=== PATIENT | female | born 1965 | race African-American/Black ===

== ENCOUNTER 2016-12-20 08:00 | Emergency (ER) | payer OTHER ==
[2016-12-20 08:15] VITALS: BP 136/79; PULSE 77; TEMP 98.4; BMI 52.1
--- NOTE | 2016-12-20 08:33 | PDOC ---
History of Present Illness - General Chief Complaint: Back Pain Stated Complaint: SIDE PAIN Time Seen by Provider: 12/20/16 08:23 History Source: Patient Exam Limitations: No Limitations - History of Present Illness Initial Comments: CHIEF COMPLAINT: 51 y/o afebrile female no significant PMH c/o left upper abdominal pain for 1 week. HISTORY OF PRESENT ILLNESS: The patient states the pain hurts constantly but worse with palpation. She denies f/c, n/v/d, CP, SOB, back pain, hematuria, dysuria. She also states she swallowed a piece of plastic 1 year ago, she thinks it's still there and would like us to remove it. She is taking opioids for pain which are helping. Vital signs on arrival are within normal limits. REVIEW OF SYSTEMS: GENERAL/CONSTITUTIONAL: No fever/chills. No weakness. No weight change. HEAD, EYES, EARS, NOSE AND THROAT: No change in vision. No ear pain or discharge. No sore throat. CARDIOVASCULAR: No chest pain or shortness of breath. RESPIRATORY: No cough, wheezing, or hemoptysis. GASTROINTESTINAL: +left upper abd pain. No nausea, vomiting, diarrhea, constipation. GENITOURINARY: No dysuria, frequency, or change in urination. MUSCULOSKELETAL: No joint or muscle swelling or pain. No neck or back pain. SKIN: No rash or easy bruising. NEUROLOGIC: No headache, vertigo, loss of consciousness, or loss of sensation. PHYSICAL EXAM: GENERAL: The patient is awake, alert, and fully oriented, in no acute distress. She is morbidly obese, ambulatory, in NAD or obvious discomfort. HEAD: Normal with no signs of trauma. ENT: Pupils equal, round and reactive to light, extraocular movements intact, sclera anicteric, conjunctiva clear. Neck supple. LUNGS: Clear to auscultation bilaterally. Normal excursion. No respiratory distress or use of accessory muscles. CV: RRR, S1/S2, no MRG. Cap refill < 2 sec. ABDOMEN: Soft, morbidly obese, TTP between LUQ and left flank. Some mild TTP of left pelvic region. No suprapubic TTP. No rebound, guarding, rigidity. No flank pain. BACK: No CVA TTP b/l. EXTREMITIES: Normal range of motion, no edema. NEUROLOGICAL: Normal speech, normal gait. CN II-XII grossly intact. PSYCH: Normal mood, normal affect. SKIN: Warm, dry, normal turgor, no rashes or lesions noted. Past History - Past Medical History Allergies/Adverse Reactions: Allergies Allergy/AdvReac Type Severity Reaction Status Date / Time No Known Allergies Allergy Verified 12/20/16 08:08 Home Medications: Ambulatory Orders Oxycodone HCl/Acetaminophen [Percocet 5-325 mg Tablet] 1 - 2 tab PO Q4H Asthma: Yes - Surgical History Abdominal Surgery: Yes (fibroids) - Psycho/Social/Smoking Cessation Hx Anxiety: No Suicidal Ideation: No Smoking History: Current every day smoker Have you smoked in the past 12 months: Yes Number of Cigarettes Smoked Daily: 10 Information on smoking cessation initiated: No 'Breaking Loose' booklet given: 07/11/15 Hx Alcohol Use: No Drug/Substance Use Hx: No *Physical Exam - Vital Signs Last Vital Signs Temp Pulse Resp BP Pulse Ox 98.4 F 77 22 136/79 100 12/20/16 08:08 12/20/16 08:08 12/20/16 08:08 12/20/16 08:08 12/20/16 08:08 Medical Decision Making - Medical Decision Making A/P: 51 y/o afebrile female with left upper quadrant pain for 1 week. No other symptoms. Will check for UTI; pt requests test. Informed her she would need to f/u with ENT for possible scope for plastic issue Suggested she take Motrin every 6 hours for side pain UA normal hcg negative Will discharge to home with instructions to add Motrin to her opioid regimen and f/u with Dr. Dover to address her throat issue. Instructed the patient to return to the ER with any worsening or concerning symptoms. The patient verbalizes understanding of all instructions, has no further questions and is awaiting discharge. *DC/Admit/Observation/Transfer Diagnosis at time of Disposition: Musculoskeletal pain - Discharge Dispostion Disposition: HOME Condition at time of disposition: Good - Referrals Referrals: Brandon Dover MD [Staff Physician] - - Patient Instructions Printed Discharge Instructions: DI for Musculoskeletal Pain Additional Instructions: Discharge Instructions: -Continue taking your prescription pain medication as directed by your pain management doctor -Take 600mg of [id number] Ibuprofen with food for pain every 6 hours -Follow up with Dr. Dover to follow up on your throat issue. -Return to the ER with any worsening or concerning symptoms
[2016-12-20 09:13] LABS: URINE APPEARANCE CLEAR; URINE BILIRUBIN NEGATIVE (NEGATIVE); URINE BLOOD NEGATIVE (NEGATIVE); URINE COLOR YELLOW; URINE GLUCOSE (UA) NEGATIVE (NEGATIVE); URINE KETONE NEGATIVE (NEGATIVE); URINE NITRITE NEGATIVE (NEGATIVE); URINE PROTEIN NEGATIVE (NEGATIVE); URINE UROBILINOGEN 2.0 E.U/dl E.U./dl (0.2-1.0)
[2016-12-20 09:21] LABS: URINE LEUK ESTERASE TRACE (NEGATIVE)
[2016-12-20 09:26] LABS: URINE MUCUS RARE; URINE RBC 1 /hpf (0-3); URINE WBC 4 /hpf (3-5)
[2016-12-20] MEDS ORDERED: IBUPROFEN 600 MG TABLET (FP) PO ONE ×2 (09:35→09:38)
== END 2016-12-20 09:40 | disposition home or self-care (01) ==
LOC: JERFT 08:00
DX: M79.1 Myalgia (principal); F17.210 Nicotine dependence, cigarettes, uncomplicated; J45.909 Unspecified asthma, uncomplicated
CPT/HCPCS: 81003; 81015; 84703; 87086; 99281-25

== ENCOUNTER 2017-01-10 12:07 | Emergency (ER) | payer OTHER ==
[2017-01-10 12:26] VITALS: BP 128/75; PULSE 71; TEMP 98.1; BMI 52.1
--- NOTE | 2017-01-10 12:48 | PDOC ---
History of Present Illness - General Chief Complaint: Pain Stated Complaint: RT ANKLE PAIN Time Seen by Provider: 01/10/17 12:32 History Source: Patient Exam Limitations: Physical Impairment (pt in wheelchair obese ) - History of Present Illness Initial Comments: 01/10/17 12:47 pt states she fell 3 weeks ago and injured her right ankle. c/o pain to the ankle. Past History - Past Medical History Allergies/Adverse Reactions: Allergies Allergy/AdvReac Type Severity Reaction Status Date / Time No Known Allergies Allergy Verified 01/10/17 12:26 Home Medications: Ambulatory Orders Oxycodone HCl/Acetaminophen [Percocet 5-325 mg Tablet] 1 - 2 tab PO Q4H Acetaminophen W/ Codeine #3 [Tylenol # 3 -] 1 tab PO Q6H PRN #10 tablet MDD 4 tabs 01/10/17 Asthma: Yes Other medical history: CHRONIC BACK PAIN - Surgical History Abdominal Surgery: Yes (fibroids) - Psycho/Social/Smoking Cessation Hx Anxiety: No Suicidal Ideation: No Smoking History: Current every day smoker Have you smoked in the past 12 months: Yes Number of Cigarettes Smoked Daily: 10 Information on smoking cessation initiated: No 'Breaking Loose' booklet given: 07/11/15 Hx Alcohol Use: No Drug/Substance Use Hx: No *Physical Exam - Vital Signs Last Vital Signs Temp Pulse Resp BP Pulse Ox 98.1 F 71 18 128/75 97 01/10/17 12:22 01/10/17 12:22 01/10/17 12:22 01/10/17 12:22 01/10/17 12:22 - Physical Exam General Appearance: Yes: Nourished, Appropriately Dressed, Obese HEENT: positive: EOMI, VENKATA Musculoskeletal: positive: Normal Inspection Extremity: positive: Normal Capillary Refill, Tender (distal medial, lateral maleolus ), Swelling, Other (from all toes, strong DP pulse). negative: Coldness Integumentary: positive: Normal Color, Dry, Warm Neurologic: positive: Fully Oriented, Alert, Normal Mood/Affect, Normal Response , Motor Strength 5/5 Procedures - Splinting Splint Location: Right: Ankle (posterior leg splint ) Hand-Made Type: orthoglass Post-Proc Neuro Vasc Exam: normal ED Treatment Course - RADIOLOGY Radiology Studies Ordered: Category Date Time Status ANKLE & FOOT-RIGHT* [RAD] Stat Radiology 01/10/17 12:32 Taken Comments: fracture distal tibia Medical Decision Making - Medical Decision Making 01/10/17 12:58 cc: fell 3 weeks ago c/o constant right ankle pain pt is obese uses electric wheelchair pt denies any numbness to the ankle or foot 01/10/17 13:02 orthoglass splint placed nv intact pt to folow up next week with the orthopedist, pt states she has an orthopedist in the [place] that she will see I have also given her Adina Gruber and Reji *DC/Admit/Observation/Transfer Diagnosis at time of Disposition: Ankle fracture, right Qualifiers: Encounter type: initial encounter Fracture type: closed Qualified Code(s): S82.891A - Other fracture of right lower leg, initial encounter for closed fracture - Discharge Dispostion Disposition: HOME Condition at time of disposition: Good - Prescriptions Prescriptions: Acetaminophen W/ Codeine #3 [Tylenol # 3 -] 1 tab PO Q6H PRN #10 tablet MDD 4 tabs PRN Reason: Severe Pain - Referrals Referrals: Asmita Maldonado [Primary Care Provider] - Wil Gruber MD [Staff Physician] - - Patient Instructions Additional Instructions: follow with or for follow up call them today to set up appointment for next week keep the splint on at all times do not remove or get wet
[2017-01-10] MEDS ORDERED: ACETAMINOPHEN 500 MG TABLET (FP) PO ONE (12:59)
[2017-01-10] MEDS ORDERED: ACETAMINOPHEN 500 MG TABLET (FP) ONE (13:07)
== END 2017-01-10 13:09 | disposition home or self-care (01) ==
LOC: JERFT 12:07
PROC: 2W3LX1Z Immobilization of Right Lower Extremity using Splint (ICD-10-PCS; principal; 2017-01-10)
DX: S82.831A Other fracture of upper and lower end of right fibula, initial encounter for closed fracture (principal); E66.01 Morbid (severe) obesity due to excess calories; Z99.3 Dependence on wheelchair; Z68.43 Body mass index [BMI] 50.0-59.9, adult; W19.XXXA Unspecified fall, initial encounter; Y93.89 Activity, other specified; Y92.89 Other specified places as the place of occurrence of the external cause
CPT/HCPCS: 29125; 73610-TC-RT; 73630-TC-RT; 99282-25

== ENCOUNTER 2017-05-12 11:26 | Emergency (ER) | payer OTHER ==
[2017-05-12 11:32] VITALS: BP 130/73; PULSE 76; TEMP 98; BMI 50.6
[2017-05-12] MEDS ORDERED: IBUPROFEN 600 MG TABLET (FP) PO ONE (11:51)
[2017-05-12] MEDS ORDERED: IBUPROFEN 400 MG TABLET (FP) PO ONE (11:53)
--- NOTE | 2017-05-12 12:02 | PDOC ---
History of Present Illness - General Chief Complaint: Injury Stated Complaint: ANKLES PAIN Time Seen by Provider: 05/12/17 11:42 History Source: Patient Exam Limitations: No Limitations - History of Present Illness Initial Comments: 05/12/17 11:53 51 yr female with c/o pain to the left ankle/foot after a fall 2 days ago. Pt states she has a history or pain to the right ankle from a fracture 3 months ago. Pt requesting tylenol with codeine. Severity: reports: mild Past History - Past Medical History Allergies/Adverse Reactions: Allergies Allergy/AdvReac Type Severity Reaction Status Date / Time No Known Allergies Allergy Verified 05/12/17 11:29 Home Medications: Ambulatory Orders Oxycodone HCl/Acetaminophen [Percocet 5-325 mg Tablet] 1 - 2 tab PO Q4H Naproxen [Naprosyn -] 500 mg PO BID PRN #14 tablet 05/12/17 Asthma: Yes Other medical history: BACKS - Surgical History Abdominal Surgery: Yes (fibroids) - Psycho/Social/Smoking Cessation Hx Anxiety: No Suicidal Ideation: No Smoking History: Current every day smoker Have you smoked in the past 12 months: Yes Number of Cigarettes Smoked Daily: 10 Information on smoking cessation initiated: Yes 'Breaking Loose' booklet given: 05/12/17 Hx Alcohol Use: No Drug/Substance Use Hx: No *Physical Exam - Vital Signs Last Vital Signs Temp Pulse Resp BP Pulse Ox 98.0 F 76 18 130/73 100 05/12/17 11:30 05/12/17 11:30 05/12/17 11:30 05/12/17 11:30 05/12/17 11:30 - Physical Exam General Appearance: Yes: Nourished, Appropriately Dressed HEENT: positive: EOMI, VENKATA Neck: positive: Supple Musculoskeletal: positive: Normal Inspection. negative: CVA Tenderness, CVA Tenderness (R), CVA Tenderness (L), Muscle Spasm Extremity: positive: Normal Capillary Refill, Normal Inspection, Tender (left ankle ttp distal tibia no swelling or deformtiy nv intact strong DP pulses bilaterally) Integumentary: positive: Normal Color, Dry, Warm Neurologic: positive: Fully Oriented, Alert, Normal Mood/Affect, Normal Response , Motor Strength 5/5 ED Treatment Course - RADIOLOGY Radiology Studies Ordered: Category Date Time Status ANKLE & FOOT-LEFT* [RAD] Stat Radiology 05/12/17 11:52 Ordered ANKLE & FOOT-RIGHT* [RAD] Stat Radiology 05/12/17 11:52 Ordered Medical Decision Making - Medical Decision Making 05/12/17 12:21 cc: chronic pain right ankle left ankle pain s/p fall 3 days ago pt ambulatory no unsteady gait, pt uses a walker at baseline will xray the ankle motrin for pain *DC/Admit/Observation/Transfer Diagnosis at time of Disposition: Left ankle pain Qualifiers: Chronicity: acute Qualified Code(s): M25.572 - Pain in left ankle and joints of left foot - Discharge Dispostion Disposition: HOME Condition at time of disposition: Good - Prescriptions Prescriptions: Naproxen [Naprosyn -] 500 mg PO BID PRN #14 tablet PRN Reason: Pain - Referrals Referrals: Knvg Mendoza MD [Staff Physician] - - Patient Instructions Additional Instructions: please follow with the orthopedist you have seen in the past take naprosyn for pain as needed elevate the foot/ankle and apply ice every 2hrs for 20 minutes to help with pain
== END 2017-05-12 13:48 | disposition home or self-care (01) ==
LOC: JERFT 11:26
DX: M25.572 Pain in left ankle and joints of left foot (principal); Z87.81 Personal history of (healed) traumatic fracture; M25.571 Pain in right ankle and joints of right foot; W19.XXXA Unspecified fall, initial encounter; Y93.89 Activity, other specified; Y92.89 Other specified places as the place of occurrence of the external cause; R26.89 Other abnormalities of gait and mobility; Z99.89 Dependence on other enabling machines and devices
CPT/HCPCS: 73610-TC-LT; 73610-TC-RT; 73630-TC-LT; 73630-TC-RT; 99281-25

== ENCOUNTER 2018-07-30 16:13 | Emergency (ER) | payer OTHER ==
[2018-07-30 16:34] VITALS: BP 121/79; PULSE 81; TEMP 98.8; BMI 51.2
--- NOTE | 2018-07-30 16:35 | PDOC ---
Rapid Medical Evaluation Chief Complaint: Injury Time Seen by Provider: 07/30/18 16:30 Medical Evaluation: Allergies Allergy/AdvReac Type Severity Reaction Status Date / Time No Known Allergies Allergy Verified 05/12/17 11:29 07/30/18 16:31 I have performed a brief in-person evaluation of this patient. The patient presents with a chief complaint of: neck, back, head, right pain- motorized scooter fell onto patient after falling backwards Pertinent physical exam findings: ankle xray right, with multiple ST pain. No deformities I have ordered the following: right ankle Xray- The patient will proceed to the ED for further evaluation. 07/30/18 16:32 07/30/18 16:33 Discharge Disposition - Diagnosis Musculoskeletal pain - Discharge Dispostion Condition at time of disposition: Stable Decision to Admit order: No - Referrals - Patient Instructions - Post Discharge Activity
--- NOTE | 2018-07-30 17:18 | PDOC ---
History of Present Illness - General Chief Complaint: Injury Stated Complaint: INJURY Time Seen by Provider: 07/30/18 16:30 History Source: Patient Exam Limitations: Clinical Condition - History of Present Illness Initial Comments: 07/30/18 17:12 Patient with history of bilateral knee replacement scooter presented with complaint of pain to left side of neck, headache and right ankle status post fall while moving off the ramp from the [place] in a scooter and scooter falling on top of her as per patient. Patient reported incident happened yesterday while she was being sent for appointment and fell of the ramp going down to around from the van. patient denies dizziness, LOC, blurry vision, light headedness Timing/Duration: 24 hours Past History - Past Medical History Allergies/Adverse Reactions: Allergies Allergy/AdvReac Type Severity Reaction Status Date / Time No Known Allergies Allergy Verified 07/30/18 16:34 Home Medications: Ambulatory Orders Methocarbamol [Robaxin -] 500 mg PO TID PRN #21 tablet 07/30/18 Naproxen 500 mg PO BID PRN #20 tablet 07/30/18 Asthma: Yes COPD: No Other medical history: Rt ankle surgery - Surgical History Abdominal Surgery: Yes (fibroids) - Suicide/Smoking/Psychosocial Hx Smoking History: Current every day smoker Have you smoked in the past 12 months: Yes Number of Cigarettes Smoked Daily: 10 Information on smoking cessation initiated: No 'Breaking Loose' booklet given: 07/30/18 Hx Alcohol Use: No Drug/Substance Use Hx: No Substance Use Type: None Review of Systems - Review of Systems Able to Perform ROS?: Yes Is the patient limited Ethiopian proficient: No Constitutional: No: Malaise HEENTM: No: Blurred Vision, Recent change in vision, Double Vision Respiratory: No: Symptoms reported Cardiac (ROS): No: Symptoms Reported ABD/GI: No: Nausea, Vomiting Musculoskeletal: Yes: Joint Pain (left side of neck. right ankle), Joint Swelling (right ankle), Muscle Pain (left side of neck). No: Muscle Weakness Neurological: Yes: Headache. No: Numbness, Paresthesia, Seizure, Tingling, Weakness, Dizziness All Other Systems: Reviewed and Negative *Physical Exam - Vital Signs Last Vital Signs Temp Pulse Resp BP Pulse Ox 98.8 F 81 18 121/79 99 07/30/18 16:30 07/30/18 16:30 07/30/18 16:30 07/30/18 16:30 07/30/18 16:30 - Physical Exam Comments: 07/30/18 17:19 GENERAL: Well developed, well nourished. Awake and alert. No acute distress. HEENT: Normocephalic, atraumatic. PERRLA, EOMI. No conjunctival pallor. Sclera are non- icteric. Moist mucous membranes. Oropharynx is clear. NECK: moderate tenderness to left paracervical muscle of C4-C7. Full ROM. No JVD. Carotid pulses 2+ and symmetric, without bruits. No thyromegaly. No lymphadenopathy. CARDIOVASCULAR: Regular rate and rhythm. No murmurs, rubs, or gallops. Distal pulses are 2+ and symmetric. PULMONARY: No evidence of respiratory distress. Lungs clear to auscultation bilaterally. No wheezing, rales or rhonchi. ABDOMINAL: Soft. Non-tender. Non-distended. No rebound or guarding. No organomegaly. Normoactive bowel sounds. MUSCULOSKELETAL : moderate tenderness to lateral malleolus of right ankle. mild swelling to lateral side of right ankle. Normal range of motion at all joints. No bony deformities SKIN: Warm and dry. Normal capillary refill. No rashes. No jaundice. NEUROLOGICAL: Alert, awake, appropriate. Cranial nerves 2-12 intact. PSYCHIATRIC: Cooperative. Good eye contact. Appropriate mood and affect. General Appearance: Yes: Nourished, Appropriately Dressed. No: Apparent Distress ED Treatment Course - RADIOLOGY Radiology Studies Ordered: Category Date Time Status SPINE-CERVICAL [RAD] Stat Radiology 07/30/18 17:06 Ordered Medical Decision Making - Medical Decision Making 07/30/18 17:22 Patient with history of osteoarthritis status post bilateral knee surgery presented with complaint of right ankle, headache and left-sided neck pain status post fall off his scooter yesterday going down a ramp. Patient denies LOC or dizziness. exam significant for moderate tenderness to left side of neck and lateral side of right ankle. X-ray of right ankle ordered. X-ray of the cervical spine ordered. tx based on imaging results 07/30/18 17:45 x-rays of right ankle and cervical spine shows no acute pathology. symptoms likely neck and ankle sprain. patient stable for discharge on NSAIDS and muscle relaxer with orthopedics follow-up *DC/Admit/Observation/Transfer Diagnosis at time of Disposition: Musculoskeletal pain Ankle pain, right Qualifiers: Chronicity: acute Qualified Code(s): M25.571 - Pain in right ankle and joints of right foot Neck muscle strain Qualifiers: Encounter type: initial encounter Qualified Code(s): S16.1XXA - Strain of muscle, fascia and tendon at neck level, initial encounter - Discharge Dispostion Disposition: HOME Condition at time of disposition: Stable Decision to Admit order: No - Prescriptions Prescriptions: Methocarbamol [Robaxin -] 500 mg PO TID PRN #21 tablet PRN Reason: neck pain Naproxen 500 mg PO BID PRN #20 tablet PRN Reason: pain - Referrals Referrals: Asmita Maldonado [Primary Care Provider] - Wil Gruber MD [Staff Physician] - - Patient Instructions Printed Discharge Instructions: DI for Neck Pain, DI for Whiplash Additional Instructions: Your x-rays shows no acute fracture. take prescribed medications for pain. follow-up with referred orthopedics if symptoms persists for more than 4 days - Post Discharge Activity
[2018-07-30] MEDS ORDERED: NAPROXEN 500 MG TABLET (FP) PO ONE (18:23)
[2018-07-30] MEDS ORDERED: NAPROXEN 500 MG TABLET (FP) ONE (18:24)
== END 2018-07-30 18:25 | disposition home or self-care (01) ==
LOC: JERFT 16:13
DX: S16.1XXA Strain of muscle, fascia and tendon at neck level, initial encounter (principal); M25.571 Pain in right ankle and joints of right foot; R51 Headache; V00.831A Fall from motorized mobility scooter, initial encounter; Y93.89 Activity, other specified; Y92.89 Other specified places as the place of occurrence of the external cause; Y99.8 Other external cause status; F17.210 Nicotine dependence, cigarettes, uncomplicated; Z96.653 Presence of artificial knee joint, bilateral
CPT/HCPCS: 72050-TC-FY; 73610-TC-RT-FY; 99281-25

== ENCOUNTER 2018-11-23 17:05 | Emergency (ER) | payer OTHER ==
--- NOTE | 2018-11-23 17:12 | PDOC ---
Rapid Medical Evaluation Time Seen by Provider: 11/23/18 17:09 Medical Evaluation: Allergies Allergy/AdvReac Type Severity Reaction Status Date / Time No Known Allergies Allergy Verified 07/30/18 16:34 11/23/18 17:09 I have performed a brief in-person evaluation of this patient. The patient presents with a chief complaint of: buttock boil and right shoulder pain s/p fall Pertinent physical exam findings: right anterior shoulder tenderness. No bony deformity. Deferred buttock assessment I have ordered the following: xray The patient will proceed to the ED for further evaluation. Discharge Disposition - Diagnosis Shoulder pain, right - Referrals - Patient Instructions - Post Discharge Activity
[2018-11-23 17:15] VITALS: BP 108/65; PULSE 82; TEMP 98.2; BMI 51.2
--- NOTE | 2018-11-23 17:51 | PDOC ---
History of Present Illness - General Chief Complaint: Pain, Acute Stated Complaint: RIGHT ARM PAIN/CYST Time Seen by Provider: 11/23/18 17:09 - History of Present Illness Initial Comments: 11/23/18 17:48 53-year-old female with a past medical history significant for chronic pain presents for evaluation of a painful area on her right buttocks which is been there for about a week no systemic symptoms no fevers chills or night sweats. And a fall which occurred about 2 days ago landing on her right shoulder splint presents for right shoulder pain. Past History - Past Medical History Allergies/Adverse Reactions: Allergies Allergy/AdvReac Type Severity Reaction Status Date / Time No Known Allergies Allergy Verified 11/23/18 17:10 Home Medications: Ambulatory Orders Cephalexin [Keflex] 500 mg PO QID #40 capsule 11/23/18 Sulfamethoxazole/Trimethoprim [Bactrim Ds -] 1 tab PO BID #14 tablet 11/23/18 Asthma: Yes COPD: No - Surgical History Abdominal Surgery: Yes (fibroids) - Immunization History Immunization Up to Date: Yes - Suicide/Smoking/Psychosocial Hx Smoking History: Current every day smoker Have you smoked in the past 12 months: Yes Number of Cigarettes Smoked Daily: 10 Information on smoking cessation initiated: No 'Breaking Loose' booklet given: 07/30/18 Hx Alcohol Use: No Drug/Substance Use Hx: No Substance Use Type: None Review of Systems - Review of Systems Constitutional: No: Fever Musculoskeletal: Yes: Joint Pain Integumentary: Yes: Lesions *Physical Exam - Vital Signs Last Vital Signs Temp Pulse Resp BP Pulse Ox 98.2 F 82 18 108/65 100 11/23/18 17:10 11/23/18 17:10 11/23/18 17:10 11/23/18 17:10 11/23/18 17:10 - Physical Exam Comments: 11/23/18 17:48 Right shoulder skin color and temperature are normal range of motion is full and painful at terminal abduction and external rotation. She is unable to tolerate impingement maneuvers or stability testing. She is neurovascularly intact. There is a nonfluctuant hard indurated mildly erythematous and warm area on the medial aspect of the right buttocks there is no opening there is no fluctuance the area is firm and about 2 cm circumferentially. Moderate Sedation - Procedure Monitoring Vital Signs: Procedure Monitoring Vital Signs Temperature 98.2 F 11/23/18 17:10 Pulse Rate 82 11/23/18 17:10 Respiratory Rate 18 11/23/18 17:10 Blood Pressure 108/65 11/23/18 17:10 O2 Sat by Pulse Oximetry (%) 100 11/23/18 17:10 Medical Decision Making - Medical Decision Making 11/23/18 17:49 I'll send to orthopedic surgery for further evaluation and treatment of her shoulder pain. She most likely has a rotator cuff tear. X-rays were reviewed today and are negative for acute fracture she does have a moderate amount of arthritis in the right shoulder. Recommended warm compresses for the skin abscess on her right buttocks I will have her follow up with general surgery. I also placed on a course of Bactrim and Keflex. *DC/Admit/Observation/Transfer Diagnosis at time of Disposition: Shoulder pain, right, Skin abscess - Discharge Dispostion Disposition: HOME Condition at time of disposition: Stable Decision to Admit order: No - Prescriptions Prescriptions: Cephalexin [Keflex] 500 mg PO QID #40 capsule Sulfamethoxazole/Trimethoprim [Bactrim Ds -] 1 tab PO BID #14 tablet - Referrals Referrals: Asmita Maldonado [Primary Care Provider] - Spenser Lind MD [Staff Physician] - Gaetano Morrison DO [Staff Physician] - - Patient Instructions Printed Discharge Instructions: DI for Shoulder Pain, Contusion, Boil, DI for Skin Abscess Additional Instructions: Continue Percocet as directed which will help with your pain. Follow-up with orthopedic surgery for further evaluation and treatment options of your right shoulder pain. Follow-up with general surgery for further evaluation and treatment options of your cellulitis of your buttocks. Please take the antibiotics as directed. - Post Discharge Activity
== END 2018-11-23 18:29 | disposition home or self-care (01) ==
LOC: JERFT 17:05
DX: M25.511 Pain in right shoulder (principal); L02.31 Cutaneous abscess of buttock; W19.XXXA Unspecified fall, initial encounter; Y93.89 Activity, other specified; Y92.89 Other specified places as the place of occurrence of the external cause; Y99.8 Other external cause status
CPT/HCPCS: 73030-TC-RT-FY; 99281-25

== ENCOUNTER 2019-03-04 13:13 | Emergency (ER) | payer OTHER | END 2019-03-04 14:02 | disposition home or self-care (01) | LOC: JERFT 13:13 ==

== ENCOUNTER 2019-10-08 07:43 | Emergency (ER) | payer MEDICARE, OTHER ==
[2019-10-08 07:54] VITALS: BMI 53.0
[2019-10-08] MEDS ORDERED: SODIUM CHLORIDE 1,000 ML IV STA (08:59)
[2019-10-08] MEDS ORDERED: ACETAMINOPHEN 1000 MG/100 ML VIAL (NON FORMULARY) IVPB ONE (08:59)
[2019-10-08 09:29] LABS: URINE APPEARANCE CLEAR; URINE BILIRUBIN NEGATIVE (NEGATIVE); URINE COLOR YELLOW; URINE GLUCOSE (UA) NEGATIVE (NEGATIVE); URINE KETONE NEGATIVE (NEGATIVE); URINE LEUK ESTERASE NEGATIVE (NEGATIVE); URINE NITRITE NEGATIVE (NEGATIVE); URINE PROTEIN NEGATIVE (NEGATIVE); URINE UROBILINOGEN 0.2 mg/dL (0.2-1.0)
[2019-10-08] MEDS ORDERED: ACETAMINOPHEN INJECTION 100 ML IVPB ONE (09:36)
[2019-10-08 09:45] LABS: BASO % 0.7 % (0-2.0); EOS % 1.6 % (0-4.5); HEMATOCRIT 40.4 % (32.4-45.2); HEMOGLOBIN 13.7 GM/dL (10.7-15.3); LYMPH % 31.2 % (8-40); MCH 30.6 pg (25.7-33.7); MONO % 9.3 % (3.8-10.2); NEUT % 57.2 % (42.8-82.8); PLATELET COUNT 322 K/MM3 (134-434); RBC 4.49 M/mm3 (3.60-5.2); RDW 13.7 % (11.6-15.6); WHITE BLOOD COUNT 7.8 K/mm3 (4.0-10.0)
[2019-10-08 10:12] LABS: ALBUMIN 3.8 g/dl (3.4-5.0); BILIRUBIN,TOTAL 0.5 mg/dL (0.2-1); BLOOD UREA NITROGEN 12.7 mg/dL (7-18); CALCIUM 9.3 mg/dL (8.5-10.1); POTASSIUM 4.2 mmol/L (3.5-5.1); TOT PROT 7.8 g/dl (6.4-8.2)
--- NOTE | 2019-10-08 10:25 | PDOC ---
History of Present Illness - General History Source: Patient Exam Limitations: No Limitations <Yu Vanessa - Last Filed: 10/08/19 16:28> <Nely Rojas - Last Filed: 10/09/19 21:27> - General Chief Complaint: Pain, Acute Stated Complaint: LT SIDE PAIN Time Seen by Provider: 10/08/19 08:28 Past History - Travel Traveled outside of the country in the last 30 days: No Close contact w/someone who was outside of country & ill: No - Past Medical History Asthma: Yes COPD: No - Surgical History Abdominal Surgery: Yes (fibroids) - Immunization History Immunization Up to Date: No - Psycho Social/Smoking Cessation Hx Smoking History: Current every day smoker Have you smoked in the past 12 months: Yes Number of Cigarettes Smoked Daily: 20 Information on smoking cessation initiated: No 'Breaking Loose' booklet given: 07/30/18 Hx Alcohol Use: No Drug/Substance Use Hx: No Substance Use Type: None <Yu Vanessa - Last Filed: 10/08/19 16:28> <Nely Rojas - Last Filed: 10/09/19 21:27> - Past Medical History Allergies/Adverse Reactions: Allergies Allergy/AdvReac Type Severity Reaction Status Date / Time No Known Allergies Allergy Verified 10/08/19 07:49 Home Medications: Ambulatory Orders Cephalexin [Keflex] 500 mg PO QID #40 capsule 11/23/18 Cephalexin Monohydrate [Keflex -] 500 mg PO BID 7 Days #14 capsule 03/04/19 Mupirocin Ointment [Bactroban 2% Ointment -] 1 applic TP BID #1 tube 03/04/19 Sulfamethoxazole/Trimethoprim [Bactrim DS -] 1 tab PO BID #14 tablet 03/04/19 Review of Systems - Review of Systems Able to Perform ROS?: Yes Comments:: 10/08/19 10:38 CONSTITUTIONAL: Absent: fever, chills, diaphoresis, generalized weakness, malaise, loss of appetite HEENT: Absent: rhinorrhea, nasal congestion, throat pain, throat swelling, difficulty swallowing, mouth swelling, ear pain, eye pain, visual Changes CARDIOVASCULAR: Absent: chest pain, loss of consciousness, palpitations, irregular heart rate, peripheral edema RESPIRATORY: Absent: cough, shortness of breath, dyspnea with exertion, orthopnea, wheezing, stridor, hemoptysis GASTROINTESTINAL: Present: Abdominal pain Absent abdominal distension, nausea, vomiting, diarrhea , constipation, melena, hematochezia GENITOURINARY: Present: Flank pain Absent: dysuria, frequency, urgency, hesitancy, hematuria, flank pain, genital pain MUSCULOSKELETAL: Absent: myalgia, arthralgia, joint swelling SKIN: Absent: rash, itching, pallor HEMATOLOGIC/IMMUNOLOGIC: Absent: easy bleeding, easy bruising, lymphadenopathy, frequent infections ENDOCRINE: Absent: unexplained weight gain, unexplained weight loss, heat intolerance, cold intolerance NEUROLOGIC: Absent: headache, focal weakness or paresthesias, dizziness, unsteady gait, seizure, mental status changes, bladder or bowel incontinence PSYCHIATRIC: Absent: anxiety, depression, suicidal or homicidal ideation, hallucinations. Is the patient limited Fijian proficient: No <Yu Vanessa - Last Filed: 10/08/19 16:28> *Physical Exam - Vital Signs Last Vital Signs Temp Pulse Resp BP Pulse Ox 97.7 F 84 18 132/86 98 10/08/19 07:51 10/08/19 07:51 10/08/19 07:51 10/08/19 07:51 10/08/19 07:51 - Physical Exam 10/08/19 10:39 GENERAL: Well developed, well nourished. Awake and alert. No acute distress. HEENT: Normocephalic, atraumatic. PERRLA, EOMI. No conjunctival pallor. Sclera are non- icteric. Moist mucous membranes. Oropharynx is clear. NECK: Supple. Full ROM. CARDIOVASCULAR: Regular rate and rhythm. No murmurs, rubs, or gallops. Distal pulses are 2+ and symmetric. PULMONARY: No evidence of respiratory distress. Lungs clear to auscultation bilaterally. No wheezing, rales or rhonchi. ABDOMINAL: Tenderness to palpation of the left lower quadrant, left flank. Soft. Non- tender. Non-distended. No rebound or guarding. No organomegaly. Normoactive bowel sounds. MUSCULOSKELETAL Normal range of motion at all joints. No bony deformities or tenderness. No CVA tenderness. EXTREMITIES: No cyanosis. No clubbing. No edema. No calf tenderness. SKIN: Warm and dry. Normal capillary refill. No rashes. No jaundice. NEUROLOGICAL: Alert, awake, appropriate. Cranial nerves 2-12 intact. No deficits to light touch and temperature in face, upper extremities and lower extremities. No motor deficits in the in face, upper extremities and lower extremities. Normoreflexic in the upper and lower extremities. Normal speech. Toes are down- going bilaterally. Gait is normal without ataxia. PSYCHIATRIC: Cooperative. Good eye contact. Appropriate mood and affect. <Yu Vanessa - Last Filed: 10/08/19 16:28> - Vital Signs Last Vital Signs Temp Pulse Resp BP Pulse Ox 97.7 F 84 18 132/86 98 10/08/19 07:51 10/08/19 07:51 10/08/19 07:51 10/08/19 07:51 10/08/19 07:51 <Nely Rojas - Last Filed: 10/09/19 21:27> ED Treatment Course - LABORATORY CBC & Chemistry Diagram: 10/08/19 09:30 10/08/19 09:30 - ADDITIONAL ORDERS Additional order review: Laboratory Results 10/08/19 10/08/19 10/08/19 09:30 09:00 09:00 Sodium 136 Potassium 4.2 Chloride 106 Carbon Dioxide 25 Anion Gap 5 L BUN 12.7 Creatinine 1.0 Est GFR (CKD-EPI)AfAm 75.01 Est GFR (CKD-EPI)NonAf 64.72 Random Glucose 84 Calcium 9.3 Total Bilirubin 0.5 AST 15 ALT 29 Alkaline Phosphatase 128 H Total Protein 7.8 Albumin 3.8 Urine Color Yellow Urine Appearance Clear Urine pH 5.0 Ur Specific [place] 1.023 Urine Protein Negative Urine Glucose (UA) Negative Urine Ketones Negative Urine Blood Negative Urine Nitrite Negative Urine Bilirubin Negative Urine Urobilinogen 0.2 Ur Leukocyte Esterase Negative Urine HCG, Qual Negative 10/08/19 09:30 RBC 4.49 MCV 90.0 MCHC 34.0 RDW 13.7 MPV 9.0 Neutrophils % 57.2 Lymphocytes % 31.2 Monocytes % 9.3 Eosinophils % 1.6 Basophils % 0.7 - RADIOLOGY Radiology Studies Ordered: Category Date Time Status ABDOMEN & PELVIS CT WITH CONTR [CT] Stat CT Scan 10/08/19 08:59 Ordered - Medications Given in the ED: ED Medications Discontinued Medications Generic Name Dose Route Start Last Admin Trade Name Freq PRN Reason Stop Dose Admin Acetaminophen 1,000 mg 10/08/19 08:59 10/08/19 09:15 Ofirmev Injection - IVPB 10/08/19 09:00 1,000 mg ONCE ONE Administration Sodium Chloride 1,000 mls @ 1,000 mls/hr 10/08/19 08:59 10/08/19 09:15 Normal Saline - IV 10/08/19 09:58 1,000 mls/hr ASDIR STA Administration <Yu Vanessa - Last Filed: 10/08/19 16:28> - LABORATORY CBC & Chemistry Diagram: 10/08/19 09:30 10/08/19 09:30 - ADDITIONAL ORDERS Additional order review: Laboratory Results 10/08/19 10/08/19 10/08/19 09:30 09:00 09:00 Sodium 136 Potassium 4.2 Chloride 106 Carbon Dioxide 25 Anion Gap 5 L BUN 12.7 Creatinine 1.0 Est GFR (CKD-EPI)AfAm 75.01 Est GFR (CKD-EPI)NonAf 64.72 Random Glucose 84 Calcium 9.3 Total Bilirubin 0.5 AST 15 ALT 29 Alkaline Phosphatase 128 H Total Protein 7.8 Albumin 3.8 Urine Color Yellow Urine Appearance Clear Urine pH 5.0 Ur Specific [place] 1.023 Urine Protein Negative Urine Glucose (UA) Negative Urine Ketones Negative Urine Blood Negative Urine Nitrite Negative Urine Bilirubin Negative Urine Urobilinogen 0.2 Ur Leukocyte Esterase Negative Urine HCG, Qual Negative 10/08/19 09:30 RBC 4.49 MCV 90.0 MCHC 34.0 RDW 13.7 MPV 9.0 Neutrophils % 57.2 Lymphocytes % 31.2 Monocytes % 9.3 Eosinophils % 1.6 Basophils % 0.7 - Medications Given in the ED: ED Medications Discontinued Medications Generic Name Dose Route Start Last Admin Trade Name Freq PRN Reason Stop Dose Admin Acetaminophen 1,000 mg 10/08/19 08:59 10/08/19 09:15 Ofirmev Injection - IVPB 10/08/19 09:00 1,000 mg ONCE ONE Administration Sodium Chloride 1,000 mls @ 1,000 mls/hr 10/08/19 08:59 10/08/19 09:15 Normal Saline - IV 10/08/19 09:58 1,000 mls/hr ASDIR STA Administration <Nely Rojas - Last Filed: 10/09/19 21:27> Medical Decision Making - Medical Decision Making 10/08/19 10:39 Patient is a 53-year-old female with past medical history of asthma, fibroid surgery, hernia, right knee replacement, presents to the ER today for left- sided abdominal pain. She states that the pain is been going on for 2 days. She notes that the pain is consistent and located on the left side of her abdomen/flank. She states that the pain is sharp. Denies nausea, vomiting, back pain. Denies fevers, chills, difficulty breathing, shortness of breath, chest pain, urinary symptoms. Patient states she just finished her period yesterday. A/P: Abdominal pain On exam patient tender to palpation of the left lower abdomen/flank area. No CVA tenderness. Differential diagnosis includes but is not limited to: Pyelonephritis, UTI, stone, diverticulitis, viral syndrome, incareration/strangulated hernia Basic labs, urine and CTAP ordered. Lab work is unremarkable. Urine shows no infection. Patient currently pending CT. Reevaluate Case discussed with ED attending, Dr. Rojas 10/08/19 12:17 CT scan shows evidence of an incarcerated mesenteric fat containing ventral hernia with stranding. Pt states that she knew about the hernia and follows Dr. Stewart for surgery at [facility]. She states that they were supposed to do the hernia surgery and perform a gastric sleeve surgery at the same time. She is requesting that she be transferred to [facility]. Currently on the line with Transfer Center at [facility]. Spoke with Dr. Hansen surgical attending who states given her bariatric status with possible incarcerated hernia that she would like to see the patient in the ED at [facility]. ED-ED transfer; Sign out also given to Dr. De León in the ED at [facility] <Yu Vanessa - Last Filed: 10/08/19 16:28> - Medical Decision Making The patient was seen and evaluated in conjunction with midlevel provider under my direct supervision, ancillary studies were reviewed. I agree with the plan as outlined with ANNABEL Vanessa. HPI, workup/dispo as outlined. VS reviewed, wnl. labs and UA unremarkable, no blood, no infection, liver function test neg CT a/p with left sided Fat-containing umbilical hernia and fat-containing ventral hernia with inflammatory stranding within the hernia sac suspicious for incarceration, fibroid uterus otherwise unremarkable CT imaging. Patient will be transferred to [facility] as that is where she has been planned for surgical management <Nely Rojas - Last Filed: 10/09/19 21:27> Discharge - Discharge Information Problems reviewed: Yes - Transfer to Acute Care Facility Receiving [facility]: [facility] Accepting Physician:: Dr. De León, Dr. Hansen (surgery) <Yu Vanessa - Last Filed: 10/08/19 16:28> <Nely Rojas - Last Filed: 10/09/19 21:27> - Discharge Information Clinical Impression/Diagnosis: Incarcerated hernia Condition: Stable Disposition: TRANSFER ACUTE CARE/OTHER HOSP - Follow up/Referral Referrals: Adrien Hemphill MD [Primary Care Provider] - - Patient Discharge Instructions Additional Instructions: Please call document management consultant director at [facility] at regarding patient's motorized scooter pickup at [facility] when patient is medically cleared for discharge. - Post Discharge Activity
[2019-10-08 14:43] VITALS: BP 113/77; PULSE 83; TEMP 98
== END 2019-10-08 14:45 | disposition short-term general hospital (02) ==
LOC: JER 07:43
PROC: 3E033NZ Introduction of Analgesics, Hypnotics, Sedatives into Peripheral Vein, Percutaneous Approach (ICD-10-PCS; principal; 2019-10-08)
DX: K46.0 Unspecified abdominal hernia with obstruction, without gangrene (principal); J45.909 Unspecified asthma, uncomplicated; Z96.651 Presence of right artificial knee joint
CPT/HCPCS: 36415; 74177-TC; 80053; 81003; 84703; 85025; 87086; 96374; 99283-25; J0131; J7030; Q9967

== ENCOUNTER 2022-05-21 16:04 | Inpatient (IN) | payer BC, OTHER ==
[2022-05-21] MEDS ORDERED: ACETAMINOPHEN 1000 MG/100 ML BAG IVPB ONE (17:53)
[2022-05-21] MEDS ORDERED: SODIUM CHLORIDE 1,000 ML IV STA (17:53)
[2022-05-21] MEDS ORDERED: ONDANSETRON 4 MG/2 ML VIAL IVPUSH ONE (18:01)
[2022-05-21] MEDS ORDERED: ACETAMINOPHEN INJECTION 100 ML IVPB ONE (18:05)
[2022-05-21] MEDS ORDERED: ONDANSETRON 4 MG/2 ML VIAL ONE (18:34)
[2022-05-21 18:58] LABS: BASO % 0.6 % (0-2.0); EOS % 1.9 % (0-4.5); HEMATOCRIT 40.3 % (32.4-45.2); HEMOGLOBIN 13.1 GM/dL (10.7-15.3); LYMPH % 29.9 % (8-40); MCH 29.6 pg (25.7-33.7); MCHC 32.6 g/dl (32.0-36.0); MEAN CELL VOLUME 90.8 fl (80-96); MEAN PLT VOLUME 9.5 fl (7.5-11.1); MONO % 5.9 % (3.8-10.2); NEUT % 61.7 % (42.8-82.8); PLATELET COUNT 346 10^3/uL (134-434); RBC 4.44 M/mm3 (3.60-5.2); WHITE BLOOD COUNT 9.8 K/mm3 (4.0-10.0)
[2022-05-21 19:05] LABS: INR 1.15 (0.83-1.09); PROTHROMBIN TIME (PATIENT) 13.2 SEC (9.7-13.0)
[2022-05-21 20:46] LABS: BLOOD UREA NITROGEN 14.6 mg/dL (7-18); CALCIUM 9.2 mg/dL (8.5-10.1)
[2022-05-21 20:50] LABS: CREATININE 0.8 mg/dL (0.55-1.3)
[2022-05-21 20:51] LABS: BILIRUBIN,TOTAL 0.6 mg/dL (0.2-1); TOT PROT 7.8 g/dl (6.4-8.2)
[2022-05-22 04:33] VITALS: BMI 52.2
[2022-05-22] MEDS ORDERED: SODIUM CHLORIDE 1,000 ML IV SCH (04:45)
[2022-05-22] MEDS: ACETAMINOPHEN 1000 MG/100 ML BAG IVPB PRN ×2 (04:58→12:46)
[2022-05-22] MEDS ORDERED: D5-NS + 20 MEQ KCL - 20 MEQ/1,000 ML INFUS.BAG IV SCH (08:45)
[2022-05-22] MEDS ORDERED: NICOTINE 7 MG/24 HOURS TOPICAL PATCH TD SCH (10:00)
[2022-05-22] MEDS ORDERED: ENOXAPARIN NA (PORCINE) 40 MG/0.4 ML DISP.SYRIN SQ SCH (10:00)
[2022-05-22] MEDS ORDERED: ALBUTEROL SO4 HFA INHALER IH PRN (14:56)
[2022-05-22 15:02] VITALS: BP 128/72; PULSE 72; RESP 18; TEMP 98.4
[2022-05-22] MEDS ORDERED: GABAPENTIN 300 MG CAPSULE PO SCH (22:00)
[2022-05-22] MEDS ORDERED: BACLOFEN 10 MG TABLET (FP) PO SCH (22:00)
[2022-05-22] MEDS ORDERED: DOXEPIN HCL 25 MG CAPSULE PO SCH (22:00)
== END 2022-05-22 16:20 | disposition home or self-care (01) | DRG 394 ==
LOC: JER 16:04 → JERBED 23:46 → J6S 05-22 02:53
PROVIDERS: ADMIT Internal Medicine; ATTEND Internal Medicine
DX: K42.0 Umbilical hernia with obstruction, without gangrene (principal); Z68.43 Body mass index [BMI] 50.0-59.9, adult; K43.6 Other and unspecified ventral hernia with obstruction, without gangrene; E66.01 Morbid (severe) obesity due to excess calories; J45.909 Unspecified asthma, uncomplicated; F41.9 Anxiety disorder, unspecified; F17.210 Nicotine dependence, cigarettes, uncomplicated
CPT/HCPCS: 0241U-QW; 36415; 74177-TC; 80053; 83605; 85025; 85610; 93005; 93010; 99285-25; Q9967